=== PATIENT | male | born 1970 | race Caucasian/White ===

== ENCOUNTER 2020-12-05 11:42 | Outpatient (CLI) | payer BC | END 2020-12-05 11:43 | disposition home or self-care (01) | LOC: CSHMRI 11:42 | PROVIDERS: ATTEND Urology | DX: R97.20 Elevated prostate specific antigen [PSA] (principal); Z98.890 Other specified postprocedural states | CPT/HCPCS: 72197 ==

== ENCOUNTER 2024-09-27 09:04 | Outpatient (CLI) | payer BC ==
[2024-09-27] MEDS ORDERED: Magnevist 469MG/ML 20 ML VIAL ONE (14:44)
== END 2024-09-27 09:05 | disposition home or self-care (01) ==
LOC: CSHMRI 09:04
PROVIDERS: ATTEND Urology
DX: R97.20 Elevated prostate specific antigen [PSA] (principal); R93.89 Abnormal findings on diagnostic imaging of other specified body structures; N40.2 Nodular prostate without lower urinary tract symptoms
CPT/HCPCS: 72197